=== PATIENT | female | born 1980 | race Caucasian/White ===

== ENCOUNTER 2021-03-14 00:32 | Emergency (ER) | payer MEDICAID, MEDICARE ==
[~2021-03-14] VITALS: Ht 160 cm; Wt 87.1 kg
[2021-03-14 00:50] VITALS: BP_SYST 140
[2021-03-14 01:32] LABS: BASOPHILS # (AUTO) 0.2 K/uL (0.0-0.2); EOSINOPHILS # (AUTO) 0.2 K/uL (0.0-0.4); EOSINOPHILS % (AUTO) 2.4 % (0.0-4.0); HEMOGLOBIN 11.3 g/dL (12.0-16.0); LYMPHOCYTES % (AUTO) 10.3 % (20.5-51.5); MEAN CORPUSCULAR HEMOGLOBIN 29 pg (27-31); MEAN CORPUSCULAR HGB CONC 33 % (32-36); MEAN CORPUSCULAR VOLUME 89 fL (79.0-98.0); NEUTROPHILS # (AUTO) 7.4 K/uL (1.8-7.7); NEUTROPHILS % (AUTO) 75.3 % (40.0-70.0); PLATELET COUNT (AUTO) 275 K/uL (130-430); RED BLOOD CELL COUNT(AUTO) 3.84 MIL/uL (4.2-6.2); RED CELL DISTRIBUTION WIDTH 12.9 % (9.0-15.0); WHITE BLOOD COUNT (AUTO) 9.8 K/uL (4.8-10.8)
[2021-03-14 01:42] LABS: CALCIUM 8.8 mg/dL (8.4-11.0); CREATININE 0.79 mg/dL (0.55-1.30); POTASSIUM 3.7 mmol/L (3.5-5.1)
[2021-03-14 01:53] LABS: ALBUMIN 3.6 g/dL (3.4-4.8); TOTAL BILIRUBIN 0.4 mg/dL (0.0-1.0)
[2021-03-14] MEDS ORDERED: NACL 0.9% 1,000 ML IV ONE (02:15)
[2021-03-14] MEDS ORDERED: MORPHINE 4 MG INJ. 4 MG/ML VIAL IVP ONE (02:15)
[2021-03-14] MEDS ORDERED: ONDANSETRON HCL 4 MG/2 ML VIAL IVP ONE (02:15)
[2021-03-14 02:24] LABS: BILIRUBIN,URINE NEGATIVE (NEGATIVE); BLOOD, URINE 1+ (NEGATIVE); CLARITY/URINE CLEAR (CLEAR); COLOR,URINE YELLOW (YELLOW); GLUCOSE,URINE NEGATIVE (NEGATIVE); KETONES,URINE NEGATIVE (NEGATIVE); LEUKOCYTE ESTERASE ,URINE TRACE (NEGATIVE); NITRITE, URINE NEGATIVE (NEGATIVE); PH,URINE 6.5 (5.0-8.0); PROTEIN URINE NEGATIVE (NEGATIVE)
[2021-03-14 02:43] LABS: BACTERIA,URINE FEW /HPF (None Seen)
[2021-03-14] MEDS ORDERED: cefTRIAXone 2 GM VIAL ONE (04:42)
[2021-03-14] MEDS ORDERED: metroNIDAZOLE 500 mg/NS 100 ML IV ONE (04:45)
[2021-03-14] MEDS ORDERED: METR500T PO (04:58)
[2021-03-14] MEDS ORDERED: CIPR500T5 PO (04:58)
[2021-03-14] MEDS ORDERED: PHE25 PO (04:58)
[2021-03-14] MEDS ORDERED: HYDR-3919 PO (04:58)
[2021-03-14 06:25] VITALS: BP_SYST 140
== END 2021-03-14 06:25 | disposition home or self-care (01) ==
LOC: SED 00:32
DX: K52.9 Noninfective gastroenteritis and colitis, unspecified (principal); R16.0 Hepatomegaly, not elsewhere classified
CPT/HCPCS: 36415; 74177; 76376; 80053; 81000; 81025; 84702; 85025; 86886; 86900; 86901; 96361; 96365; 96368; 96375; 99285; J0696; J2270; J2405; J3490; J7030; Q9967

== ENCOUNTER 2024-05-31 22:25 | Emergency (ER) | payer SELFPAY ==
[~2024-05-31] VITALS: Ht 160 cm; Wt 90.7 kg
[~2024-05-31 22:25] MED LIST: CIPR500T5 PO; HYDR-3919 PO; METR500T PO; PHE25 PO
[2024-05-31 22:39] VITALS: BP_SYST 123; PULSE 76; RESP 18; TEMP 98.1; O2SAT 96
[2024-06-01] MEDS: KETOROLAC TROMETHAMINE 60 MG/2 ML VIAL IM ONE (00:05)
[2024-06-01] MEDS ORDERED: HYDR-3917 PO (00:11)
[2024-06-01] MEDS ORDERED: IBUP-1970 PO (00:11)
[2024-06-01 00:41] VITALS: BP_SYST 123; PULSE 76; RESP 18; TEMP 98.1; O2SAT 96
== END 2024-06-01 00:41 | disposition home or self-care (01) ==
LOC: SED 22:25
DX: S92.352A Displaced fracture of fifth metatarsal bone, left foot, initial encounter for closed fracture (principal); Z79.899 Other long term (current) drug therapy; Z79.2 Long term (current) use of antibiotics; W19.XXXA Unspecified fall, initial encounter; Y93.89 Activity, other specified; Y92.89 Other specified places as the place of occurrence of the external cause; Y99.8 Other external cause status
CPT/HCPCS: 99284; 29515; 73610; 73630; 96372; J1885